=== PATIENT | female | born 1965 | race Hispanic/Latino ===

== ENCOUNTER → 2025-05-23 12:42 | Outpatient (CLI) | payer OTHER, SELFPAY ==
--- NOTE | 2025-05-23 12:47 | DI.MRI.S_ITS ---
PROCEDURE: MR CERVICAL SPINE WO CON INDICATIONS: LUE RADICULOPATHY TECHNIQUE: Noncontrast sagittal T1 spin echo and T2 fast spin echo, sagittal STIR, foraminal oblique sagittal T2 fast spin echo, and axial gradient echo or T2 fast spin echo through the cervical spine. COMPARISON: None. FINDINGS: Image quality: Excellent Straightening of the cervical spine. Mild retrolisthesis of C5 on C6. Vertebral body height of the cervical spine are well maintained. Multilevel disc desiccation. No significant disc bulge of the cervical spine. Marrow signal of the cervical spine is normal for age. Cord signal: Unremarkable Right neural foraminal stenosis: None. Left neural foraminal stenosis: Mild at C4-5 and C5-6. Axial images: C2-3: No central canal stenosis. C3-4: No central canal stenosis. C4-5: Mild left uncovertebral arthropathy. No central canal stenosis. C5-6: Left uncovertebral arthropathy. No central canal stenosis. C6-7: No central canal stenosis. C7-T1: No central canal stenosis. Other soft tissue findings: Unremarkable IMPRESSION: 1. Multilevel degenerative changes of the cervical spine, with mild left neural foraminal stenosis at C4-5 and C5-6. Dictated by: Melinda Srinivasna M.D. on 05/23/2025 at 15:02 Approved by: Melinda Srinivasan M.D. on 05/23/2025 at 15:13
== END ==
PROVIDERS: PCP Nurse Practitioner Family; Referring Provider Nurse Practitioner Family; Visit Provider Preventive Medicine Occupational Medicine
DX: S16.1XXA Strain of muscle, fascia and tendon at neck level, initial encounter (principal); M47.812 Spondylosis without myelopathy or radiculopathy, cervical region; M48.02 Spinal stenosis, cervical region; X58.XXXA Exposure to other specified factors, initial encounter
CPT/HCPCS: 72141